=== PATIENT | female | born 1935 | race Caucasian/White ===

== ENCOUNTER → 2016-05-05 | Outpatient (CLI) | payer MEDICARE, OTHER ==
[~2016-05-05] MED LIST: ALDACTONE 25MG25 M1 PO; ALPRAZOLAM PO; ANORO IH; ASPIR-LOW81 MG PO; ASPIRIN E.C. 8181 MG PO; ATORVASTATIN PO; DIGOXIN PO; ELIQUIS 5MG PO; LIPITOR 40MG TA40 MG PO; LOPRESSOR 225 MG/TAB PO; MICRO-K8 MEQ PO; NEXIUM PO; NORCO 325 MG-51 TAB PO; PAXIL PO; PAXIL40 MG PO; PROAIR HFA0.09 MG/AC IH; TRIAMTERENE AND1 TA1 PO; XANAX 0.5MG0.5 MG PO
== END ==
LOC: COL.RAD 09:45
DX: M48.54XA Collapsed vertebra, not elsewhere classified, thoracic region, initial encounter for fracture (principal)

== ENCOUNTER 2016-05-08 06:59 | Outpatient (CLI) | payer MEDICARE, OTHER ==
[2016-05-08] VITALS (9 sets, daily range): BP systolic 99–161; BP diastolic 50–132; PULSE 59–91; TEMP 97.5–97.6
[~2016-05-08] VITALS: Ht 167.6 cm; Wt 59.0 kg
[~2016-05-08 06:59] MED LIST changes: -ALDACTONE 25MG25 M1 PO; -ANORO IH; -ASPIRIN E.C. 8181 MG PO; -ELIQUIS 5MG PO; -LIPITOR 40MG TA40 MG PO; -LOPRESSOR 225 MG/TAB PO; -NORCO 325 MG-51 TAB PO; -PAXIL40 MG PO; -PROAIR HFA0.09 MG/AC IH; -XANAX 0.5MG0.5 MG PO
[2016-05-08] MEDS ORDERED: XANAX 0.5MG0.5 MG PO (07:32)
[2016-05-08] MEDS ORDERED: PROAIR HFA0.09 MG/AC IH (07:34)
[2016-05-08] MEDS ORDERED: ELIQUIS 5MG PO (07:35)
[2016-05-08] MEDS ORDERED: ASPIRIN E.C. 8181 MG PO (07:36)
[2016-05-08] MEDS ORDERED: LIPITOR 40MG TA40 MG PO (07:36)
[2016-05-08] MEDS ORDERED: LOPRESSOR 225 MG/TAB PO (07:37)
[2016-05-08] MEDS ORDERED: PAXIL40 MG PO (07:38)
[2016-05-08] MEDS ORDERED: ALDACTONE 25MG25 M1 PO (07:39)
[2016-05-08] MEDS ORDERED: ANORO IH (07:40)
[2016-05-08] MEDS ORDERED: NORCO 325 MG-51 TAB PO (07:41)
== END 2016-05-08 12:46 | disposition home or self-care (01) ==
LOC: COL.RAD 06:59
DX: S22.088A Other fracture of T11-T12 vertebra, initial encounter for closed fracture (principal); X50.0XXA Overexertion from strenuous movement or load, initial encounter
CPT/HCPCS: C1713; J2250; J3010; J7120

== ENCOUNTER → 2016-05-31 | Outpatient (CLI) | payer MEDICARE, OTHER ==
[~2016-05-31] MED LIST changes: +ALDACTONE 25MG25 M1 PO; +ANORO IH; +ASPIRIN E.C. 8181 MG PO; +ELIQUIS 5MG PO; +LIPITOR 40MG TA40 MG PO; +LOPRESSOR 225 MG/TAB PO; +NORCO 325 MG-51 TAB PO; +PAXIL40 MG PO; +PROAIR HFA0.09 MG/AC IH; +XANAX 0.5MG0.5 MG PO
== END ==
LOC: MC.RAD 05-16 15:00
DX: Z12.31 Encounter for screening mammogram for malignant neoplasm of breast (principal); D24.2 Benign neoplasm of left breast; D24.1 Benign neoplasm of right breast; Z85.3 Personal history of malignant neoplasm of breast

== ENCOUNTER → 2016-06-13 | Outpatient (CLI) | payer MEDICARE, OTHER ==
[2016-06-13 13:57] LABS: ARTERIAL BLD GAS O2 SATURATION 89.4 % (92-100); ARTERIAL BLD GAS TCO2 CT 27.9; ARTERIAL BLOOD GAS HCO3 26.6 meq/L (22-26); ARTERIAL BLOOD GAS PHT 7.42 C (7.35-7.45); ARTERIAL BLOOD GAS PO2 53.7 mmHg (80-100); ARTERIAL BLOOD GAS PO2T 53.7 (80-100); ARTERIAL BLOOD GAS pH 7.42 (7.35-7.45)
[2016-06-13 13:58] LABS: ATS? YES
[2016-06-13 13:59] LABS: ALLEN TEST NO
== END ==
LOC: COL.PUL 12:58
PROVIDERS: Internal Medicine Pulmonary Disease
DX: R06.02 Shortness of breath (principal)

== ENCOUNTER 2017-01-08 12:52 | Inpatient (IN) | payer MEDICARE, OTHER ==
[~2017-01-08] VITALS: Ht 167.6 cm; Wt 61.7 kg
[2017-01-08 13:43] LABS: HEMATOCRIT 49.8 % (37.0-47.0); HEMOGLOBIN 16.1 g/dl (12.5-16.0); MEAN CELL VOLUME 97 fl (80.0-100.0); MEAN CORPUSCULAR HEMOGLOBIN 31 pg (27.0-31.0); MEAN CORPUSCULAR HGB CONC 32 g/dl (33.0-37.0); MEAN PLATELET VOLUME 10.3 fl (7.4-10.4); PLATELET COUNT 211 K/mm3 (130-400); RED BLOOD COUNT 5.13 M/mm3 (4.10-5.30); REDCELL DISTRIBUTION WIDTH-CV 11.9 % (11.5-14.5); WHITE BLOOD COUNT 19.7 K/mm3 (4.8-10.8)
[2017-01-08 13:48] LABS: ADD PATHOLOGY DIFF REVIEW NO
[2017-01-08 13:53] LABS: ADJUSTED CALCIUM 8.8 mg/dL (8.4-10.2); C-REACTIVE PROTEIN 1.5 mg/dL (0.0-0.9); CALCIUM 8.8 mg/dL (8.4-10.2); CREATININE, serum 0.77 mg/dL (0.52-1.25); POTASSIUM 5.4 mmol/L (3.4-5.0); TOTAL PROTEIN 6.8 gm/dL (6.4-8.2)
[2017-01-08 14:42] LABS: BAND 3 % (0-10); NEUTROPHILS 89 % (42.0-75.2); PLATELET ESTIMATE NORMAL (NORMAL); TOTAL CELLS COUNTED 100
[2017-01-08] MEDS ORDERED: TAMBOCOR50 MG PO (15:04)
[2017-01-08] MEDS ORDERED: ZEBETA 5MG5 MG PO (15:04)
[2017-01-08 15:40] LABS: INR 1.3 (0.8-3.0); PROTHROMBIN TIME 14.2 SECONDS (9.7-12.8)
[2017-01-08 16:51] VITALS: BP 125/64; PULSE 80; TEMP 98.5
[2017-01-08 19:26] LABS: PH 5 (5-8); SQUAMOUS EPITHELIAL None Seen /hpf; URINE APPEARANCE Clear; URINE BACTERIA None Seen /hpf; URINE BILIRUBIN Negative (NEGATIVE); URINE BLOOD 1+ (NEGATIVE); URINE COLOR Yellow; URINE GLUCOSE Negative (NEGATIVE); URINE KETONE Negative (NEGATIVE); URINE RBC 0-2 /hpf; URINE UROBILINOGEN Negative (NEGATIVE); URINE WBC 0-2 /hpf
[2017-01-08 20:00] VITALS: BP 117/66; PULSE 97; TEMP 98.5
[2017-01-09] VITALS (12 sets, daily range): BP systolic 83–133; BP diastolic 48–496; PULSE 72–85; TEMP 97.1–98.4
[2017-01-09 07:30] LABS: BASO % 0.2 % (0.0-2.0); EOS # 0.1 (0.0-0.7); EOS % 0.4 % (0-4.0); GRAN # 13.5 (1.4-6.5); GRAN % 88.3 % (42.2-75.2); HEMATOCRIT 46.4 % (37.0-47.0); HEMOGLOBIN 14.9 g/dl (12.5-16.0); LYMPH # 0.8 (1.2-3.4); LYMPH % 5.1 % (20.0-51.0); MEAN CELL VOLUME 99 fl (80.0-100.0); MEAN CORPUSCULAR HEMOGLOBIN 32 pg (27.0-31.0); MEAN CORPUSCULAR HGB CONC 32 g/dl (33.0-37.0); MEAN PLATELET VOLUME 11.5 fl (7.4-10.4); MONO # 0.9 (0.1-0.6); MONO % 5.5 % (1.7-9.3); PLATELET COUNT 183 K/mm3 (130-400); RED BLOOD COUNT 4.71 M/mm3 (4.10-5.30); REDCELL DISTRIBUTION WIDTH-CV 12.1 % (11.5-14.5); WHITE BLOOD COUNT 15.3 K/mm3 (4.8-10.8)
[2017-01-09 07:35] LABS: CALCIUM 8.9 mg/dL (8.4-10.2); CREATININE, serum 0.77 mg/dL (0.52-1.25); POTASSIUM 5.2 mmol/L (3.4-5.0)
[2017-01-09 18:03] LABS: ADD PATHOLOGY DIFF REVIEW NO
[2017-01-09 18:08] LABS: HEMATOCRIT 45.9 % (37.0-47.0); HEMOGLOBIN 14.5 g/dl (12.5-16.0); MEAN CELL VOLUME 100 fl (80.0-100.0); MEAN CORPUSCULAR HEMOGLOBIN 32 pg (27.0-31.0); MEAN CORPUSCULAR HGB CONC 32 g/dl (33.0-37.0); MEAN PLATELET VOLUME 10.5 fl (7.4-10.4); PLATELET COUNT 172 K/mm3 (130-400); RED BLOOD COUNT 4.57 M/mm3 (4.10-5.30); REDCELL DISTRIBUTION WIDTH-CV 12.4 % (11.5-14.5); WHITE BLOOD COUNT 18.4 K/mm3 (4.8-10.8)
[2017-01-09 18:19] LABS: CALCIUM 8.7 mg/dL (8.4-10.2); CREATININE, serum 0.76 mg/dL (0.52-1.25)
[2017-01-09 18:23] LABS: POTASSIUM 5.8 mmol/L (3.4-5.0)
[2017-01-09 19:12] LABS: NEUTROPHILS 95 % (42.0-75.2); PLATELET ESTIMATE NORMAL (NORMAL); TOTAL CELLS COUNTED 100
[2017-01-10 01:49] VITALS: BP 110/64; PULSE 81; TEMP 97.6
[2017-01-10 06:11] LABS: HEMATOCRIT 40.4 % (37.0-47.0); HEMOGLOBIN 12.9 g/dl (12.5-16.0)
[2017-01-10 06:27] VITALS: BP 94/50; PULSE 70; TEMP 97.8
[2017-01-10 06:40] LABS: CALCIUM 8.4 mg/dL (8.4-10.2); CREATININE, serum 0.73 mg/dL (0.52-1.25); POTASSIUM 4.5 mmol/L (3.4-5.0)
[2017-01-10 10:54] VITALS: BP 103/45; PULSE 71; TEMP 97.7
[2017-01-10 14:00] VITALS: BP 96/49; PULSE 65; TEMP 97.8
[2017-01-10 16:46] VITALS: BP 104/50; PULSE 69; TEMP 98.4
[2017-01-10 21:10] VITALS: BP 113/54; PULSE 69; TEMP 98.5
[2017-01-11] VITALS (8 sets, daily range): BP systolic 90–137; BP diastolic 41–64; PULSE 67–92; TEMP 97.7–100.3
[2017-01-11 05:54] LABS: BASO % 0.4 % (0.0-2.0); EOS # 0.4 (0.0-0.7); EOS % 3.8 % (0-4.0); GRAN # 8.1 (1.4-6.5); GRAN % 77.8 % (42.2-75.2); HEMATOCRIT 37.4 % (37.0-47.0); MEAN CELL VOLUME 98 fl (80.0-100.0); MEAN CORPUSCULAR HEMOGLOBIN 32 pg (27.0-31.0); MEAN CORPUSCULAR HGB CONC 32 g/dl (33.0-37.0); MEAN PLATELET VOLUME 11.2 fl (7.4-10.4); MONO # 0.8 (0.1-0.6); MONO % 7.6 % (1.7-9.3); PLATELET COUNT 137 K/mm3 (130-400); REDCELL DISTRIBUTION WIDTH-CV 12.1 % (11.5-14.5); WHITE BLOOD COUNT 10.4 K/mm3 (4.8-10.8)
[2017-01-11 06:03] LABS: CALCIUM 8.2 mg/dL (8.4-10.2); CREATININE, serum 0.6 mg/dL (0.52-1.25)
[2017-01-11 16:47] LABS: ALLEN TEST YES; ALLENS TEST RESULT PASS; ARTERIAL BLD GAS O2 SATURATION 91.5 % (92-100); ARTERIAL BLD GAS TCO2 CT 29.9; ARTERIAL BLOOD GAS BASE EXCESS 2.9 (-2-2); ARTERIAL BLOOD GAS HCO3 28.4 meq/L (22-26); ARTERIAL BLOOD GAS PO2 60.3 mmHg (80-100); ATS? YES; OXYHEMOGLOBIN 90.6 %
[2017-01-12 01:23] VITALS: BP 124/55; PULSE 82; TEMP 98.4
[2017-01-12 04:55] VITALS: BP 101/47; PULSE 100; TEMP 96.9
[2017-01-12 07:13] LABS: BASO # 0.1 (0.0-0.2); BASO % 0.5 % (0.0-2.0); EOS # 0.4 (0.0-0.7); EOS % 4.2 % (0-4.0); GRAN % 75.3 % (42.2-75.2); HEMATOCRIT 37.8 % (37.0-47.0); HEMOGLOBIN 12.1 g/dl (12.5-16.0); LYMPH % 10.3 % (20.0-51.0); MEAN CELL VOLUME 98 fl (80.0-100.0); MEAN CORPUSCULAR HEMOGLOBIN 31 pg (27.0-31.0); MEAN CORPUSCULAR HGB CONC 32 g/dl (33.0-37.0); MEAN PLATELET VOLUME 11.1 fl (7.4-10.4); MONO # 0.9 (0.1-0.6); MONO % 9.4 % (1.7-9.3); PLATELET COUNT 154 K/mm3 (130-400); RED BLOOD COUNT 3.87 M/mm3 (4.10-5.30); REDCELL DISTRIBUTION WIDTH-CV 12.5 % (11.5-14.5); WHITE BLOOD COUNT 9.3 K/mm3 (4.8-10.8)
[2017-01-12 07:29] LABS: CALCIUM 8.5 mg/dL (8.4-10.2); CREATININE, serum 0.58 mg/dL (0.52-1.25); POTASSIUM 3.9 mmol/L (3.4-5.0)
[2017-01-12 10:00] VITALS: BP 136/71; PULSE 108; TEMP 98.1
[2017-01-12 13:07] VITALS: BP 112/53; PULSE 76; TEMP 98.1
[2017-01-12] MEDS ORDERED: XANAX 0.5MG0.5 MG PO (13:16)
[2017-01-12] MEDS ORDERED: NORCO 325 MG-51 TAB PO (13:17)
[2017-01-12] MEDS ORDERED: MIRALAX PA17 GM/Dose PO (13:18)
[2017-01-12 15:52] VITALS: BP 112/53; PULSE 76; TEMP 98.1
== END 2017-01-12 16:10 | DRG 481 ==
LOC: COL.ER 12:52 → SURG 14:16
PROVIDERS: Family Medicine; Internal Medicine Cardiovascular Disease; Orthopaedic Surgery; Physician Assistant
PROC: 0QS634Z Reposition Right Upper Femur with Internal Fixation Device, Percutaneous Approach (ICD-10-PCS; principal; 2017-01-08)
DX: S72.011A Unspecified intracapsular fracture of right femur, initial encounter for closed fracture (principal); D62 Acute posthemorrhagic anemia; J96.10 Chronic respiratory failure, unspecified whether with hypoxia or hypercapnia; S62.660A Nondisplaced fracture of distal phalanx of right index finger, initial encounter for closed fracture; I25.10 Atherosclerotic heart disease of native coronary artery without angina pectoris; I48.91 Unspecified atrial fibrillation; E87.5 Hyperkalemia; E78.5 Hyperlipidemia, unspecified; F41.9 Anxiety disorder, unspecified; J43.9 Emphysema, unspecified; E87.70 Fluid overload, unspecified; R73.9 Hyperglycemia, unspecified; W01.0XXA Fall on same level from slipping, tripping and stumbling without subsequent striking against object, initial encounter; Z95.5 Presence of coronary angioplasty implant and graft; Z99.81 Dependence on supplemental oxygen; Z87.891 Personal history of nicotine dependence
CPT/HCPCS: 99223-AI; 99233-AI; 99239; A9284; C1713; J0690; J1170; J1940; J2250; J2270; J2405; J2704; J7030

== ENCOUNTER 2017-10-12 10:22 | Inpatient (IN) | payer MEDICARE, OTHER ==
[~2017-10-12] VITALS: Ht 167.6 cm; Wt 61.0 kg
[~2017-10-12 10:22] MED LIST changes: +MIRALAX PA17 GM/Dose PO; +TAMBOCOR50 MG PO; +ZEBETA 5MG5 MG PO
[2017-11-15] MEDS ORDERED: CIPRO 500MG TA500 MG PO (12:20)
[2017-11-16] VITALS (11 sets, daily range): BP systolic 98–156; BP diastolic 38–81; PULSE 52–73; TEMP 98–99.1
[2017-11-17 03:43] VITALS: BP 99/76; PULSE 59; TEMP 98.1
[2017-11-17 07:43] VITALS: BP 92/33; PULSE 63; TEMP 98.2
[2017-11-17 10:00] VITALS: BP 92/41; PULSE 61; TEMP 99
[2017-11-17 15:33] VITALS: BP 103/38; PULSE 71; TEMP 98.4
[2017-11-17 20:18] VITALS: BP 113/47; PULSE 71; TEMP 98.6
[2017-11-17 23:11] VITALS: BP 123/43; PULSE 82; TEMP 98.4
[2017-11-18 03:25] VITALS: BP 99/45; PULSE 62; TEMP 98.4
[2017-11-18 07:32] VITALS: BP 111/41; PULSE 66; TEMP 98.4
[2017-11-18 12:23] VITALS: BP 97/37; PULSE 61; TEMP 98.9
[2017-11-18 16:00] VITALS: BP 125/47; PULSE 79; TEMP 97.5
[2017-11-18 20:00] VITALS: BP 95/35; PULSE 70; TEMP 98.8
[2017-11-19] VITALS: BP 97/42; PULSE 69; TEMP 98.8
[2017-11-19 04:00] VITALS: BP 98/38; PULSE 66; TEMP 98.6
[2017-11-19 07:01] LABS: HEMATOCRIT 29.3 % (37.0-47.0); HEMOGLOBIN 9.4 g/dl (12.5-16.0)
[2017-11-19 08:28] VITALS: BP 118/46; PULSE 81; TEMP 98.2
[2017-11-19 11:54] VITALS: BP 94/45; PULSE 69; TEMP 97.7
[2017-11-19 16:16] VITALS: BP 91/42; PULSE 68; TEMP 97.8
[2017-11-19 21:00] VITALS: BP 129/52; PULSE 88; TEMP 98.4
[2017-11-20 04:00] VITALS: BP 104/41; PULSE 69; TEMP 98.8
[2017-11-20] MEDS ORDERED: NORCO 325 MG-7.1 TAB PO (06:35)
[2017-11-20] MEDS ORDERED: ROXICODONE 55 MG/TAB PO (06:36)
[2017-11-20 08:02] VITALS: BP 99/45; PULSE 72; TEMP 98.6
[2017-11-20] MEDS ORDERED: BUSPAR10 MG PO (12:08)
[2017-11-20] MEDS ORDERED: ALDACTONE 25MG25 M1 PO (12:09)
[2017-11-20] MEDS ORDERED: PAXIL40 MG PO (12:09)
[2017-11-20 12:32] VITALS: BP 100/50; PULSE 77; TEMP 97.5
== END 2017-11-20 14:57 | DRG 470 ==
LOC: JCC 11-16 07:24
PROVIDERS: Orthopaedic Surgery
PROC: 0QP604Z Removal of Internal Fixation Device from Right Upper Femur, Open Approach (ICD-10-PCS; 2017-11-16)
PROC: 0SR90JA Replacement of Right Hip Joint with Synthetic Substitute, Uncemented, Open Approach (ICD-10-PCS; principal; 2017-11-16 11:00)
DX: M16.11 Unilateral primary osteoarthritis, right hip (principal); S72.001P Fracture of unspecified part of neck of right femur, subsequent encounter for closed fracture with malunion; I10 Essential (primary) hypertension; J44.9 Chronic obstructive pulmonary disease, unspecified; R33.9 Retention of urine, unspecified; N95.2 Postmenopausal atrophic vaginitis; I48.91 Unspecified atrial fibrillation; I27.20 Pulmonary hypertension, unspecified; Z85.3 Personal history of malignant neoplasm of breast; Z85.828 Personal history of other malignant neoplasm of skin; Z87.891 Personal history of nicotine dependence
CPT/HCPCS: A4314; A9284; C1776; J0690; J2250; J2270; J2704; J2795; J3010; J7042; J7120

== ENCOUNTER → 2017-11-06 | Outpatient (CLI) | payer MEDICARE, OTHER | LOC: COL.LAB 15:18 | DX: Z01.812 Encounter for preprocedural laboratory examination (principal) ==

== ENCOUNTER 2017-12-03 15:20 | Emergency (ER) | payer MEDICARE, OTHER ==
[~2017-12-03] VITALS: Ht 167.6 cm; Wt 57.7 kg
[~2017-12-03 15:20] MED LIST changes: +BUSPAR10 MG PO; +CIPRO 500MG TA500 MG PO; +NORCO 325 MG-7.1 TAB PO; +ROXICODONE 55 MG/TAB PO
[2017-12-03 15:24] VITALS: BP 126/58; TEMP 98.5
[2017-12-03 15:56] LABS: BASO # 0.1 (0.0-0.2); BASO % 0.6 % (0.0-2.0); EOS # 0.4 (0.0-0.7); EOS % 3.7 % (0-4.0); GRAN # 7.6 (1.4-6.5); HEMATOCRIT 39.9 % (37.0-47.0); HEMOGLOBIN 12.3 g/dl (12.5-16.0); LYMPH # 1.4 (1.2-3.4); LYMPH % 13.6 % (20.0-51.0); MEAN CELL VOLUME 101 fl (80.0-100.0); MEAN CORPUSCULAR HEMOGLOBIN 31 pg (27.0-31.0); MEAN CORPUSCULAR HGB CONC 31 g/dl (33.0-37.0); MEAN PLATELET VOLUME 8.9 fl (7.4-10.4); MONO # 0.9 (0.1-0.6); MONO % 8.8 % (1.7-9.3); PLATELET COUNT 508 K/mm3 (130-400); RED BLOOD COUNT 3.97 M/mm3 (4.10-5.30); REDCELL DISTRIBUTION WIDTH-CV 13.1 % (11.5-14.5)
[2017-12-03 16:09] LABS: ALBUMIN 3.9 gm/dL (3.5-5.0); BILIRUBIN,TOTAL 0.5 mg/dL (0.0-1.0); C-REACTIVE PROTEIN 0.8 mg/dL (0.0-0.9); CREATININE, serum 0.65 mg/dL (0.52-1.25); POTASSIUM 4.5 mmol/L (3.4-5.0); TOTAL PROTEIN 6.9 gm/dL (6.4-8.2)
[2017-12-03] MEDS ORDERED: DOXYCYCLINE 10100 MG PO (17:49)
[2017-12-03 18:11] VITALS: PULSE 67
== END 2017-12-03 18:11 | disposition home or self-care (01) ==
LOC: COL.ER 15:20
PROVIDERS: Emergency Medicine
DX: R06.02 Shortness of breath (principal); J44.9 Chronic obstructive pulmonary disease, unspecified; I25.10 Atherosclerotic heart disease of native coronary artery without angina pectoris; I27.20 Pulmonary hypertension, unspecified; Z95.5 Presence of coronary angioplasty implant and graft; Z79.891 Long term (current) use of opiate analgesic; Z79.82 Long term (current) use of aspirin; Z79.899 Other long term (current) drug therapy; Z85.3 Personal history of malignant neoplasm of breast; Z87.891 Personal history of nicotine dependence; Z88.2 Allergy status to sulfonamides

== ENCOUNTER → 2018-01-14 | Outpatient (CLI) | payer MEDICARE, OTHER ==
[~2018-01-14] MED LIST changes: +DOXYCYCLINE 10100 MG PO
== END ==
LOC: MC.RAD 12-07 13:40
DX: Z12.31 Encounter for screening mammogram for malignant neoplasm of breast (principal); Z98.890 Other specified postprocedural states

== ENCOUNTER 2020-06-15 16:42 | Emergency (ER) | payer MEDICARE, OTHER ==
[~2020-06-15] VITALS: Ht 167.6 cm; Wt 55.5 kg
[2020-06-15 16:52] VITALS: TEMP 97.8
[2020-06-15 17:54] LABS: BASO # 0.1 (0.0-0.2); BASO % 0.4 % (0.0-2.0); EOS # 0.1 (0.0-0.7); EOS % 0.6 % (0-4.0); GRAN # 11.1 (1.4-6.5); GRAN % 88.1 % (42.2-75.2); HEMATOCRIT 43.3 % (37.0-47.0); HEMOGLOBIN 13.6 g/dl (12.5-16.0); LYMPH # 0.7 (1.2-3.4); LYMPH % 5.6 % (20.0-51.0); MEAN CELL VOLUME 99 fl (80.0-100.0); MEAN CORPUSCULAR HEMOGLOBIN 31 pg (27.0-31.0); MEAN CORPUSCULAR HGB CONC 31 g/dl (33.0-37.0); MEAN PLATELET VOLUME 9.8 fl (7.4-10.4); MONO # 0.6 (0.1-0.6); PLATELET COUNT 257 K/mm3 (130-400); RED BLOOD COUNT 4.39 M/mm3 (4.10-5.30)
[2020-06-15 18:01] LABS: INR 1.3 (0.8-3.0); PROTHROMBIN TIME 14.7 SECONDS (9.7-12.8)
[2020-06-15 18:30] LABS: ALBUMIN 4.3 gm/dL (3.5-5.0); BILIRUBIN,TOTAL 0.7 mg/dL (0.0-1.0); CALCIUM 9.4 mg/dL (8.4-10.2); CREATININE, serum 0.7 (0.52-1.25); POTASSIUM 4.3 mmol/L (3.4-5.0); TOTAL PROTEIN 7.1 gm/dL (6.4-8.2)
[2020-06-15 18:33] LABS: C-REACTIVE PROTEIN 0.5 mg/dL (0.0-0.9)
[2020-06-15] MEDS ORDERED: FLONASEALLERGY NS (18:51)
[2020-06-15] MEDS ORDERED: DOXYCYCLINE 10100 MG PO (18:51)
[2020-06-15 20:00] VITALS: BP 120/70; PULSE 62
== END 2020-06-15 20:03 | disposition home or self-care (01) ==
LOC: COL.ER 16:42
PROVIDERS: Nurse Practitioner
DX: R51.9 Headache, unspecified (principal); J01.90 Acute sinusitis, unspecified; J44.9 Chronic obstructive pulmonary disease, unspecified; Z88.1 Allergy status to other antibiotic agents; Z88.6 Allergy status to analgesic agent; Z88.2 Allergy status to sulfonamides; Z87.891 Personal history of nicotine dependence; Z79.01 Long term (current) use of anticoagulants; Z79.82 Long term (current) use of aspirin
CPT/HCPCS: J7030

== ENCOUNTER 2021-10-11 07:11 | Inpatient (IN) | payer MEDICARE, OTHER ==
[~2021-10-11] VITALS: Ht 165.1 cm; Wt 57.7 kg
[2021-10-11] VITALS (23 sets, daily range): BP systolic 117–179; BP diastolic 50–88; PULSE 61–78; TEMP 97.5–98
[~2021-10-11 07:11] MED LIST changes: +BENADRYL25 M2 PO; +FLONASEALLERGY NS
[2021-10-11] MEDS ORDERED: TRELEGY ELLIPT1 EACH IH (07:50)
--- NOTE | 2021-10-11 08:35 | NUR ---
PT WAS GIVEN FENTANYL 25 MG FOR ANXIETY
--- NOTE | 2021-10-11 09:10 | NUR ---
UNABLE TO OBYAIN SPECIMEN
--- NOTE | 2021-10-11 09:51 | NUR ---
PT WAS TAKEN TO EU AND SHE BECOAME WORSE. THE PAIN IN HER BACK AND BREATHING WORSENED. VISITED WITH DR RITCHIE ABOUT THE INFORMATION. PT WAS BROUGHT BACK TO CT AND CHEST TUBE PLACED
--- NOTE | 2021-10-11 10:10 | NUR ---
CHEST TUBE PLACED
--- NOTE | 2021-10-11 10:50 | NUR ---
PT TAKEN UPSTAIRS VIA CART TO ROOM 327. DESIREE GRIFFITHS WAS GIVEN REPORT IN THE ROOM. PT HAS A RIGHT SIDED HEIMLICH CHEST TUBE. PT ALSO HAS A TICK BURIED IN HER LEFT UPPER ARM.
--- NOTE | 2021-10-11 13:00 | NUR ---
PT HAS A TICK ON HER LEFT UPPER ARM, DR. MORENO MADE AWARE, STATES THAT IT CAN BE REMOVED. TICK IS REMOVED BY THIS NURSE, IS INTACT, SITE IS RED. TICK HAS BEEN DISPOSED OF IN THE TOILET.
--- NOTE | 2021-10-11 15:35 | NUR ---
2ND ROXICODONE GIVEN @ THIS TIME PER PROTOCOL, PT STATES THAT SHE IS CONTINUING TO HAVE SEVERE PAIN, 1ST PILL IMPROVED PAIN A LITTLE BUT NOT ENOUGH. PT STATES THAT PAIN IS @ THE INSERTION SITE OF THE CHEST ET THE ENTIRE RIGHT LATERAL SIDE OF HER BACK. PT DENIES ANY INCREASED SOB, DOES HAVE SOME WITH AMBULATION BUT STATES THAT IT IS HER USUAL, DOES WEAR O2 @ HOME, IS CURRENTLY ON 2L. [place] VALVE IN PLACE TO RIGHT ANTERIOR CHEST, DRESSING INTACT. PT IS A&0 X3 BUT ATTEMPTS TO LEAVE BED ON HER OWN TO GO TO . PT IS HIGH FALL RISK R/T OXYGEN ET POOR VISION, GAIT IS ALSO WEAK. PT VERBALIZES UNDERSTANDING OF FALL RISK ET PRECAUTIONS, BED ALARM IS ON. CALL LIGHT WITHIN REACH.
--- NOTE | 2021-10-11 19:14 | NUR ---
BEDSIDE REPORT RECEIVED. PT LAYING IN BED RESTING QUIETLY. PT DENIES ANY PAIN AT THIS TIME. WILL CONTINUE TO MONITOR.
--- NOTE | 2021-10-11 23:12 | NUR ---
PT APPEARS ANXIOUS. PRN ALPRAZOLAM ADMINISTERED. PT EXPRESSES WORRY ABOUT PENDING PATHOLOGY OF RECENT BIOPSY AND IS TEARFUL.
[2021-10-12 00:50] VITALS: BP 120/59; PULSE 73; TEMP 98.6
[2021-10-12 07:51] VITALS: BP 116/59; PULSE 77; TEMP 98.6
--- NOTE | 2021-10-12 11:32 | NUR ---
Lola: Restorationist Situation: Tray Setter stopped by room on rounds Background: PT was resting and content Assessment: PT appreciated the visit Recommendation: Tray Setter will follow up as needed
[2021-10-12 11:53] VITALS: BP 105/46; PULSE 73; TEMP 97.5
--- NOTE | 2021-10-12 14:55 | NUR ---
Musical Instrument Maker Or Repairer met with patient and attempted to discuss discharge planning. Initially, patient did not want to answer questions as she stated she would not be here long and had a lot on her mind. Patient then began discussing her circumstances with RAMIRO and talked about some of her worries. Patient lives alone in [place] and sees Dr. Whitten for primary care. Patient states she takes care of herself and has home oxygen already established. Patient is hopeful that her chest tube will be removed and she can be discharged today. Patient is not and has one adult son, Dimitri (ph#[phone]). Patient states her son is busy with work and would prefer he not be bothered. Patient advised she's been discussing [facility] with her PCP but that it's "not related" to her hospital stay here so she does not want SW to send a HH referral at this time. Patient plans to return home at time of discharge. SW contacted patient's son, Dimitri to review discharge plan. Dimitri advised he goes to patient's home around three times a week to help patient with things she needs. Dimitri advised patient also has a person that comes in about once a month to assist with cleaning. RAMIRO discussed HH services with Dimitri who reported that patient is a private person and can be stubborn, so she has not been open to HH services. Dimitri inquired about private duty services so SW provided information about local agencies. Discharge Plan: Home
[2021-10-12 16:22] VITALS: BP 109/80; PULSE 78; TEMP 97.7
--- NOTE | 2021-10-12 17:29 | NUR ---
PT SLEEPING @ THIS TIME, HAS APPEARED TO REST QUIETLY MOST OF DAY, HAS DENIED NEED FOR PAIN MEDICATION WHEN ASKED, RATES RIGHT CHEST/LATERAL BACK PAIN 4/10 @ REST BUT INCREASES WITH MOVEMENT. PT HAD STATED THAT SHE HAD A HEADACHE EARLIER THAT HAD IMPROVED WITH TYLENOL ADMINISTRATION. HI[place]LICH VALVE CHEST TUBE IN PLACE TO RIGHT CHEST, DRESSING CDI. RESPIRATIONS ARE UNLABORED ON 4L O2 VIA NC. PT HAS USED CALL LIGHT APPROPRIATELY TO AMBULATE WITH SBA TO BATHROOM. BED ALARM IS ON FOR SAFETY, CALL LIGHT WITHIN REACH.
[2021-10-12 20:00] VITALS: BP 103/50; PULSE 76; TEMP 98.4
--- NOTE | 2021-10-12 20:24 | NUR ---
TX GIVEN VIA MASK, TOLERATED WELL. FAMILY X 1 AT BEDSIDE.
[2021-10-13 00:53] VITALS: BP 120/53; PULSE 85; TEMP 98.3
--- NOTE | 2021-10-13 01:39 | NUR ---
PATIENT IN BED ON ROOM ENTRY, FAMILY AT BEDSIDE, EATING DINNER. C/O MODERATE PAIN BUT DENIED NEED FOR PAIN MEDS. HS MEDS GIVEN AND PATIENT REQUESTED XANAX BE GIVEN LATER. HEMLICH VALVE TO R CHEST, DRESSING CDI. PATIENT AMBULATED SBA TO BATHROOM SEVERAL TIMES THROUGHOUT THE NIGHT. CHILD CARE SPECIALIST STATED THAT PATIENT BECAME TEARFUL ON A TRIP BACK FROM BATHROOM AND PATIENT STATED "IT JUST HURTS SO BAD" DISCUSSED THIS WITH PATIENT WHO IS CAUTIOUS ABOUT TAKING NARCOTICS BUT AGREED TO TRY ONE MILES FOR TONIGHT. DENIES ADDITIONAL NEEDS.
--- NOTE | 2021-10-13 01:54 | NUR ---
TX NOT GIVEN AT THIS TIME, PT SLEEPING.
[2021-10-13 03:33] VITALS: BP 105/62; PULSE 76; TEMP 98.6
[2021-10-13 07:41] VITALS: BP 107/50; PULSE 74; TEMP 97.9
--- NOTE | 2021-10-13 09:32 | NUR ---
DR. MITCHELL AND DR MORENO IN TO SEE PT, CHEST TUBE CLAMPED, PT DID NOT TOLERATE WELL, O2 SATS DROPPED TO 77 OVER THE HOUR, PEDRO VELIZ AND NURSING AT BEDSIDE. DR MORENO UNCLAMPED CHEST TUBE AND SATS INCREASED TO 97 ON 6L PNC. PT DOING BETTER AND VITALS STABILIZED. UPDATED PT'S SON.
--- NOTE | 2021-10-13 10:46 | NUR ---
PT RESTING QUIETLY IN BED AFTER CHEST TUBE OPENED. SATS MAINTAINING IN MID 90'S.
[2021-10-13 12:21] VITALS: BP 121/58; PULSE 81; TEMP 97.7
[2021-10-13 16:03] VITALS: BP 118/56; PULSE 86; TEMP 97.9
[2021-10-13 20:28] VITALS: BP 115/50; PULSE 96; TEMP 98.3
--- NOTE | 2021-10-13 21:54 | NUR ---
ASSESSMENT COMPLETE. PT. SITTING UP IN BED WATCHING TV. A&0. NO COMPLAINTS OF PAIN. DRESSING TO RIGHT SIDE OF CHEST CDI. PT. ASSISSTED TO BATHROOM AND THEN BACK INTO BED. CALL LIGHT IN REACH. NO FURTHER NEEDS AT THIS TIME.
[2021-10-14] VITALS (7 sets, daily range): BP systolic 110–159; BP diastolic 46–71; PULSE 77–93; TEMP 97.9–99
--- NOTE | 2021-10-14 01:43 | NUR ---
PT REQUESTED I NOT WAKE HER, PT SLEEPING AT THIS TIME.
--- NOTE | 2021-10-14 03:03 | NUR ---
PT. CALLED OUT REQUESTING XANAX WHICH WAS GIVEN. PT. THEN CALLLED OUT LATER STILL ANXIOUS REQUESTING SOMETHING TO HELP HER SLEEP. SINCE SHE WAS IN SOME PAIN IN HER RIGHT SIDE OF CHEST AND BACK ELMA WAS GIVEN (SEE EMAR) AND A HEATING PAD PROVIDED. PT. WAS THEN ABLE TO REST.
--- NOTE | 2021-10-14 10:49 | NUR ---
PT C/O SOB CHECKED AND FOUND O2 SATS AMID 70'S. O2 WAS FOUND @@ 2L. PT IS CHRONIC AT 4 L PNC. TURNED O2 UP TO 4 L AND PT SATS UP TO 92%.
--- NOTE | 2021-10-14 15:26 | NUR ---
Bundle Collector was contacted by patient's son, Dimitri who had concerns about patient returning home with no services. Dimitri inquired about SNF vs Home Health and SW advised she would follow up with patient. SW met with patient to review discharge plan. SW attempted to discuss a short term SNF stay, however patient quickly declined this and stated she was capable of caring for herself. SW discussed Home Health, at least for nursing as patient will be discharged with a chest tube. Patient stated she very well could only have a short time left to live, and did not feel like HH visits were how she wanted to spend her time. Patient again stated she can care for herself. Patient stated at one point she talked with [facility], however they couldn't help with the things she wanted, like weed pulling. SW contacted patient's son to provide update. Dimitri expressed great frustration with patient and stated this is the way she has always been. Dimitri advised his daughter, Luisa plans to stay with patient for a few days, however he does not like that his daughter will be put in a stressful situation. RAMIRO contacted Hospitalist with update and he will speak with patient on this matter tomorrow. RAMIRO also left a message with Cheryl Tapia, Bundle Collector at Dr. Eli's office.
--- NOTE | 2021-10-14 16:35 | NUR ---
WATER SEAL SET TO 20. PT TOLERATING WELL. AKHIL KNIGHT RN SET UP CHEST TUBE ASSISTED BY ROSALBA PERDOMO RN AND ANAIS GRIFFITHS.
--- NOTE | 2021-10-14 20:33 | NUR ---
ASSESSMENT COMPLETE. PT. SITTING IN BED. A&O. STATES BACK "ACHES" BUT DENIES WANTING ANYTHING FOR IT AT THIS TIME. PT. ALSO STATES SHE FEELS ANXIOUS WITH HER HEART BEATING FAST. XANAX WAS OFFERED AND GIVEN (SEE EMAR). CHEST TUBE TO WATER SEAL WITH 20 SUCTION. WATER SEAL IS BUBBLING. NO DRAINAGE. CALL LIGHT IN REACH. NO FURTHER NEEDS AT THIS TIME.
[2021-10-15 03:33] VITALS: BP 173/90; PULSE 110; TEMP 98
[2021-10-15 08:00] VITALS: BP 116/56; PULSE 84; TEMP 97.6
[2021-10-15 12:00] VITALS: BP 103/48; PULSE 62; TEMP 97.6
[2021-10-15 16:00] VITALS: BP 108/45; PULSE 70; TEMP 97.6; TEMP 97.8
[2021-10-15 19:58] VITALS: BP 105/45; PULSE 71; TEMP 98.7
--- NOTE | 2021-10-15 22:24 | NUR ---
ASSESSMENT COMPLETE. PT. SITTING IN BED AFTER A BED BATH. A&O. COMPLAINING OF MILD PAIN TO CHEST. DENIES WANTING ANYTHING FOR IT. PT. APPEARS TO BE IN BETTER SPIRITS TONIGHT. WATER SEAL OF CHEST TUBE IS BUBBLING. SUCTION AT 30. CALL LIGHT IN REACH. NO FURTHER NEEDS AT THIS TIME.
[2021-10-15 23:59] VITALS: BP 159/87; PULSE 87; TEMP 97.8
[2021-10-16 03:31] VITALS: BP 128/52; PULSE 69; TEMP 97.9
[2021-10-16 07:34] VITALS: BP 101/49; PULSE 66; TEMP 97.8
[2021-10-16 11:52] VITALS: BP 151/60; PULSE 77; TEMP 98.1
[2021-10-16 15:37] VITALS: BP 107/49; PULSE 63; TEMP 98.2
[2021-10-16 19:25] VITALS: BP 99/52; PULSE 63; TEMP 97.6
[2021-10-16 23:25] VITALS: BP 113/65; PULSE 78; TEMP 98.5
--- NOTE | 2021-10-17 01:38 | NUR ---
PATIENT IN BED ON ROOM ENTRY. HS MEDS PER EMAR. PATIENT AMBULATES WITH STANDBY ASSIST TO BATHROOM THROUGHOUT THE NIGHT WITHOUT ISSUE. C/O MODERATE SHARP PAIN 6/10 TO R CHEST TUBE SITE, CHEST TUBE APPEARS INTACT AND WORKING, OFFERED MILES BUT PATIENT REFUSED. PATIENT CALLED OUT REQUESTING HER XANAX WHICH WAS GIVEN. PATIENT CALLED OUT APPROXIMATELY 1 HOUR AFTER XANAX WAS GIVEN C/O NOT BEING ABLE TO SLEEP BECAUSE SHE WAS IN PAIN, DISCUSSED CHOICES OF MILES AND TYLENOL AND PATIENT AGREEABLE TO TAKE MILES AT THIS TIME. PATIENT NOW REMAINS IN BED, RESTING WITH EYES CLOSED, RR EVEN AND UNLABORED. CHEST TUBE REMAINS TO WATER SEAL SUCTION 20MLS.
[2021-10-17 04:25] VITALS: BP 102/42; PULSE 46; TEMP 98
[2021-10-17 08:44] VITALS: BP 94/36; PULSE 54; TEMP 97.9
--- NOTE | 2021-10-17 09:30 | NUR ---
PT LAYING SUPINE IN BED WITH 4LIT VIA NC ON. AT BEDSIDE. STATES THAT HE WANTS TO REMOVE CHEST TUBE. WHEN WENT TO REMOVE CHEST TUBE AND IT WAS LAYING ON PTS BED. PT STATES SHE IS NOT SURE WHEN THIS HAPPENED AND WAS UNAWARE THAT IT WAS EVEN OUT. "I HAD SOME CHEST PAIN LAST NIGHT, I WONDER IF THAT WAS WHAT HAPPENED THEN." PT STATES THAT SHE IS NOT HAVING ANY PAIN AT THIS TIME. PT STATES THAT SHE NEEDS TO GO TO THE BATHROOM. ASSISTEN PT TO BATHROOM VIA STANDBY ASSIT. PT STATES NO OTHER NEEDS/CONCERNS AT THIS TIME. CALL LIGHT IS WITHIN REACH.
[2021-10-17 12:05] VITALS: BP 128/61; PULSE 71; TEMP 97.8
--- NOTE | 2021-10-17 14:04 | NUR ---
The hospitalist is looking at discharging the patient later today or tomorrow. RAMIRO met with the patient to review discharge plan. The patient is still wanting to return home. RAMIRO discussed home health services. The patient is open to home health now. She states that she has been talking to Russell at [facility] and would like to go through them. She states that she is only interested in nursing and does not want to waste her time with physical therapy. She states that she already knows and can do the home exercises. RAMIRO presented and read the IM form outloud to the patient. The patient verbalized understanding and of agreement to discharge today. She gave RAMIRO approval to sign the form on her behalf. RAMIRO provided her with a copy. RAMIRO attempted to contact and update the patient's son, Dimitri. RAMIRO left him a voicemail. RAMIRO contacted and faxed a referral to Russell at [facility]. *Discharge plan: home with home health*
[2021-10-17 15:18] VITALS: BP 113/56; PULSE 68; TEMP 98.3
[2021-10-17] MEDS ORDERED: PEPCID 20MG TAB20 MG PO (16:53)
== END 2021-10-17 18:29 | disposition home health service (06) | DRG 199 ==
LOC: COL.RAD 07:11 → SURG 10:40
PROVIDERS: ADMIT Internal Medicine
PROC: 0W9930Z Drainage of Right Pleural Cavity with Drainage Device, Percutaneous Approach (ICD-10-PCS; principal; 2021-10-11)
PROC: 0BBD3ZX Excision of Right Middle Lung Lobe, Percutaneous Approach, Diagnostic (ICD-10-PCS; 2021-10-11)
DX: J95.811 Postprocedural pneumothorax (principal); E43 Unspecified severe protein-calorie malnutrition; J96.11 Chronic respiratory failure with hypoxia; T79.7XXA Traumatic subcutaneous emphysema, initial encounter; I25.10 Atherosclerotic heart disease of native coronary artery without angina pectoris; E78.5 Hyperlipidemia, unspecified; I48.91 Unspecified atrial fibrillation; F41.9 Anxiety disorder, unspecified; I27.20 Pulmonary hypertension, unspecified; G47.30 Sleep apnea, unspecified; F51.04 Psychophysiologic insomnia; K21.9 Gastro-esophageal reflux disease without esophagitis; Z96.641 Presence of right artificial hip joint; Z99.81 Dependence on supplemental oxygen; Z90.89 Acquired absence of other organs; Z90.49 Acquired absence of other specified parts of digestive tract; Z79.82 Long term (current) use of aspirin; Z79.01 Long term (current) use of anticoagulants; Z90.12 Acquired absence of left breast and nipple; Z87.891 Personal history of nicotine dependence; Z88.6 Allergy status to analgesic agent; Z88.1 Allergy status to other antibiotic agents; Z88.2 Allergy status to sulfonamides; Z95.5 Presence of coronary angioplasty implant and graft; Z87.01 Personal history of pneumonia (recurrent); Z85.3 Personal history of malignant neoplasm of breast; Z23 Encounter for immunization
CPT/HCPCS: OP; 99233-AI; 99239; A7041; J2405